=== PATIENT | female | born 1965 | race Two or more races ===

== ENCOUNTER 2022-01-17 14:32 | Emergency (ER) | payer SELFPAY ==
[~2022-01-17] VITALS: Ht 170.2 cm; Wt 67.1 kg
--- NOTE | 2022-01-17 14:54 | NUR ---
CP X 1 MONTH, WORSE FOR THE LAST 2 DAYS.
--- NOTE | 2022-01-17 15:03 | NUR ---
REFUSED BLOOD WORKS - I WILL WAIT FOR THE ER PHYSICIAN TO SEE THE PATIENT
--- NOTE | 2022-01-17 16:21 | NUR ---
PHLEB AT BEDSIDE; REFUSED BLOOD DRAW X2.
[2022-01-17 16:27] VITALS: BP 99/58
== END 2022-01-17 16:28 | disposition home or self-care (01) ==
LOC: ER 14:37
DX: R07.89 Other chest pain (principal); E78.5 Hyperlipidemia, unspecified; F17.210 Nicotine dependence, cigarettes, uncomplicated; Z98.890 Other specified postprocedural states
CPT/HCPCS: 71045-TC